=== PATIENT | male | born 1985 | race Caucasian/White ===

== ENCOUNTER 2017-01-17 12:48 | Observation (INO) ==
--- NOTE | 2017-01-17 13:37 | Emergency Department Note ---
Disposition Clinical Impression: Cellulitis Qualifiers: Site of cellulitis: extremity Site of cellulitis of extremity: lower extremity Laterality: left Qualified Code(s): L03.116 - Cellulitis of left lower limb Disposition: Admitted As Inpatient Condition: Fair Referrals: Dimple Loredo [employer] ACQUISITION ANALYST [Primary Care Provider] - Time of Disposition: 14:22 Skin/Abscess/FB HPI Chief complaint: ED Skin/Abscess/Foreign Body Stated complaint: Abcess Left leg Time Seen by Provider: 01/17/17 13:11 Source: patient Limitations: no limitations Nursing Notes Reviewed: Yes Vital Signs Reviewed: Yes HPI Narrative: Nontoxic-appearing 31-year-old male presents for evaluation of a left inner thigh abscess. He states that he noticed this area approximately 5 days ago. It has grown in size and increased in severity/become more painful ever since. He denies any accompanying symptoms such as fever, chills, nausea, vomiting, however admits to several episodes of "getting flushed". He states a history of hydradenitis suppurativa and that he has had abscesses in the past however none in this location and none quite this severe. Eyes any spontaneous discharge or drainage from the abscess itself. Pt Subjective Complaint: abscess/boil Onset (ago): day(s) (5) Location: LLE Severity: moderate Severity scale (1-10): 6 Quality: aching Consistency: Worsening Improves with: none Worsens with: palpation, movement Associated symptoms: Reports: denies other symptoms Treatments prior to arrival: none Previous Rx's Medication Instructions Recorded Loratadine [Claritin] 10 mg PO DAILY #14 tablet 11/15/15 predniSONE [PredniSONE] 20 mg PO BIDWM #40 tablet 11/15/15 Allergies Allergy/AdvReac Type Severity Reaction Status Date / Time No Known Allergies Allergy Verified 01/17/17 13:00 All systems ED: reviewed and negative except as stated. Constitutional: Denies: fever, chills, weakness, weight change Eyes: Denies: eye pain, eye discharge, vision change ENT ED: Denies: ear pain, throat pain, dental pain, hearing loss, epistaxis, congestion, dysphagia Cardiovascular: Denies: chest pain, palpitations, dyspnea on exertion, edema, syncope Respiratory: Denies: cough, dyspnea, wheezes, hemoptysis, stridor Gastrointestinal: Denies: abdominal pain, nausea, vomiting, diarrhea, constipation, hematemesis, melena, hematochezia Genitourinary: Denies: urgency, dysuria, frequency, hematuria Musculoskeletal: Denies: back pain, neck pain, arthralgia, myalgia Integumentary: Reports: as per HPI, other (Abscess). Denies: abrasion, lesions Neurological: Denies: headache, weakness, numbness, paresthesias, confusion, abnormal gait, vertigo Psychiatric: Denies: anxiety, depression, suicidal thoughts, homicidal thoughts , auditory hallucinations, visual hallucinations Endocrine: Denies: fatigue Hematological/Lymphatic: Denies: easy bleeding, easy bruising Allergic/Immunologic: Denies: facial swelling, urticaria Past Medical History - Past Medical History Attestation: Yes The following information was validated with the patient. Source: patient, nursing notes reviewed Medical history: Reports: hypertension Surgical history: Reports: other - Social History Smoking Status: Never smoker Smokeless Tobacco Status: No Alcohol use: Reports: none Drug use: Reports: none Physical Exam - General Limitations: no limitations General appearance: alert, in no apparent distress - Head Head exam: atraumatic, normocephalic, normal inspection - Eye Eye exam: Present: normal appearance, PERRL, EOMI. Absent: nystagmus - ENT ENT exam: mucous membranes moist - Neck Neck exam: Present: normal inspection, full ROM, trachea midline - Chest Chest inspection: Present: normal inspection, symmetric chest wall rise - Respiratory Respiratory exam: Present: normal lung sounds bilaterally. Absent: respiratory distress, wheezes, stridor, accessory muscle use, prolonged expiratory phase - Cardiovascular Cardiovascular exam: Present: regular rate, normal rhythm, normal heart sounds - Abdominal Exam Abdominal exam: Present: soft, Non-Tender, normal bowel sounds - Expanded Lower Extremity Exam 1 - Area of induration that measures approximately 4 cm x 4 cm without palpable fluctuance. This appears to be a deep tissue abscess. Mild overlying/ surrounding cellulitis present. No discharge or drainage is noted. - Neurological Exam Neurological exam: Present: alert, oriented X3 - Psychiatric Psychiatric exam: Present: normal affect, normal mood - Skin Skin exam: Present: warm, dry, intact, normal color Course - Reevaluation(s) Reevaluation #1: 31-year-old with a history of hydra adenitis who comes in with swelling to his proximal leg. The large indurated area of his proximal left inner thigh. CT scan with contrast shows no obvious abscess. We did ultrasound couldn't find anything that was drainable. It is fairly extensive Rohit ahead and give him IV antibiotics. Time: 15:24 - Consultations Consultation #1: Discussed with Dr. Broderick, admit Time: 15:25 Vital Signs Temperature 97.8 F 01/17/17 12:57 Pulse Rate 87 01/17/17 12:57 Respiratory Rate 16 01/17/17 12:57 Blood Pressure 156/84 01/17/17 12:57 O2 Sat by Pulse Oximetry 92 01/17/17 12:57 Temperature 97.8 F 01/17/17 12:57 Pulse Rate 87 01/17/17 12:57 Respiratory Rate 16 01/17/17 12:57 Blood Pressure 156/84 01/17/17 12:57 O2 Sat by Pulse Oximetry 92 01/17/17 12:57 Oxygen Delivery Oxygen Delivery Room Air Skin/Abscess/Foreign Body - Medical Records Medical records reviewed: Yes I reviewed the patient's medical records. - Lab Data Lab results reviewed: Yes I reviewed the patient's lab results. Result diagrams: 01/17/17 13:52 01/17/17 13:52 Lab Results 01/17/17 01/17/17 01/17/17 Range/Units 13:52 13:52 13:52 WBC 8.5 (4.3-11.1) K/mcL RBC 5.89 H (4.19-5.50) M/mcL Hgb 16.0 (12.9-16.9) g/dL Hct 49.8 (37.5-50.1) % MCV 84.6 (83.0-100.0) fL MCH 27.2 L (28.0-33.3) pg MCHC 32.1 (31.6-35.5) g/dL RDW 14.7 H (11.5-14.5) % Plt Count 333 (140-400) K/mcL MPV 9.4 (9.4-12.4) fL Immature Gran % 0.7 (0-4) % Seg Neutrophils % 59.6 % Lymphocytes % 26.1 % Monocytes % 9.5 % Eosinophils % 3.3 % Basophils % 0.8 % Neutrophils # 5.0 (1.6-8.9) K/mcL Lymphocytes # 2.2 (0.6-4.6) K/mcL Monocytes # 0.8 (0.0-1.3) K/mcL Eosinophils # 0.3 (0.0-0.6) K/mcL Basophils # 0.1 (0.0-0.2) K/mcL ESR 71 H (0-10) mm/hr Sodium 141 (136-145) mEq/L Potassium 3.8 (3.5-4.5) mEq/L Chloride 109 (98-109) mEq/L Carbon Dioxide 22 (19-29) mEq/L BUN 16 (8-26) mg/dL Creatinine 0.99 (0.72-1.25) mg/dL Est GFR ( Amer) > 60 (> 60) Est GFR (Non-Af Amer) > 60 (> 60) BUN/Creatinine Ratio 16 (6-26) Glucose 96 (70-99) mg/dL Calculated Osmolality 293 (280-300) Lactic Acid (0.5-2.2) mmol/L Calcium 9.8 (8.6-10.8) mg/dL C-Reactive Protein (Less than 5) mg/L 01/17/17 01/17/17 Range/Units 13:52 13:52 WBC (4.3-11.1) K/mcL RBC (4.19-5.50) M/mcL Hgb (12.9-16.9) g/dL Hct (37.5-50.1) % MCV (83.0-100.0) fL MCH (28.0-33.3) pg MCHC (31.6-35.5) g/dL RDW (11.5-14.5) % Plt Count (140-400) K/mcL MPV (9.4-12.4) fL Immature Gran % (0-4) % Seg Neutrophils % % Lymphocytes % % Monocytes % % Eosinophils % % Basophils % % Neutrophils # (1.6-8.9) K/mcL Lymphocytes # (0.6-4.6) K/mcL Monocytes # (0.0-1.3) K/mcL Eosinophils # (0.0-0.6) K/mcL Basophils # (0.0-0.2) K/mcL ESR (0-10) mm/hr Sodium (136-145) mEq/L Potassium (3.5-4.5) mEq/L Chloride (98-109) mEq/L Carbon Dioxide (19-29) mEq/L BUN (8-26) mg/dL Creatinine (0.72-1.25) mg/dL Est GFR ( Amer) (> 60) Est GFR (Non-Af Amer) (> 60) BUN/Creatinine Ratio (6-26) Glucose (70-99) mg/dL Calculated Osmolality (280-300) Lactic Acid 1.3 (0.5-2.2) mmol/L Calcium (8.6-10.8) mg/dL C-Reactive Protein 9 H (Less than 5) mg/L - Radiology Data Radiology results reviewed: Yes I reviewed the patient's radiology results. Lower Extremity CT 01/17/17 13:29 IMPRESSION: Edema versus cellulitis of the left lower gluteal region and inner thigh. There is a subdermal low density region, as possible phlegmon measuring 3 x 2.5 cm. D/ / Maynor Glez MD / Maynor Glez MD Interpreting Provider: Maynor Glez MD Pelvis CT 01/17/17 13:29 IMPRESSION: Edema versus cellulitis of the left lower gluteal region and inner thigh. There is a subdermal low density region, as possible phlegmon measuring 3 x 2.5 cm. D/ / Maynor Glez MD / Maynor Glez MD Interpreting Provider: Maynor Glez MD S.B.A.R. - S.B.A.R. Situation: Demographics, MOA Background: Presenting Complaint, Relevant PMH, Meds, & Allergies Assessment: Vital Signs, Course and respsone to treatment, Exam Concerns, Patient/Family Expectation, Pertinant Lab Results, Outstanding Labs Recommendation: Barrier(s) to disposition, Recommendation based on pending studies, treatments, or consults Yulia Report Given to: Dr. Lai Bender Repor Time: 14:21
[2017-01-17 14:03] LABS: Basophils # 0.1 K/mcL (0.0-0.2); Basophils % 0.8 %; Eosinophils # 0.3 K/mcL (0.0-0.6); Eosinophils % 3.3 %; Hematocrit 49.8 % (37.5-50.1); Immature Granulocytes % 0.7 % (0-4); Lymphocytes # 2.2 K/mcL (0.6-4.6); Lymphocytes % 26.1 %; Mean Corpuscular HGB Conc 32.1 g/dL (31.6-35.5); Mean Corpuscular Hemoglobin 27.2 pg (28.0-33.3); Mean Corpuscular Volume 84.6 fL (83.0-100.0); Mean Platelet Volume 9.4 fL (9.4-12.4); Monocytes # 0.8 K/mcL (0.0-1.3); Monocytes % 9.5 %; Platelet Count 333 K/mcL (140-400); Red Blood Count 5.89 M/mcL (4.19-5.50); Red Cell Distribution Width 14.7 % (11.5-14.5); Segmented Neutrophils % 59.6 %
[2017-01-17 14:13] LABS: BUN/Creatinine Ratio 16 (6-26); Blood Urea Nitrogen 16 mg/dL (8-26); Calcium 9.8 mg/dL (8.6-10.8); Carbon Dioxide 22 mEq/L (19-29); Chloride 109 mEq/L (98-109); Glucose 96 mg/dL (70-99); Osmolality,Calculated 293 (280-300); Potassium 3.8 mEq/L (3.5-4.5); Sodium 141 mEq/L (136-145); eGFR For African Americans > 60 (> 60); eGFR For Non-African Americans > 60 (> 60)
[2017-01-17] MEDS ORDERED: Piperacillin/Tazobactam 3.375 GM in D5% in Water (Mini-Bag+) 100 ML IVPB ONE (15:23)
[2017-01-17] MEDS ORDERED: Vancomycin 1,000 MG in D5% in Water 250 ML IVPB ONE (15:23)
[2017-01-17] MEDS ORDERED: Naloxone 0.4 MG/ML INJ IVP PRN (17:34)
--- NOTE | 2017-01-17 17:42 | Internal Med History&Physical ---
Date of Encounter: 01/17/17 Time of Encounter: 17:39 Assessment and Plan (1) Cellulitis Current visit: Yes Status: Acute Posterior medial thigh abscess, occurring approximately 5 days ago, continuing to increase in size, now painful. No drainage noted. Likely need incision and drainage at CT reveals 2 x 3 cm phlegmon Consult surgery for incision and drainage-wound cultures with I&D- surgery notified Vancomycin with pharmacy to dose Zosyn 3.375 Q8hrs CBC, BMP in the morning Qualifiers: Site of cellulitis: extremity Site of cellulitis of extremity: lower extremity Laterality: left Qualified Code(s): L03.116 - Cellulitis of left lower limb (2) HTN (hypertension) Current visit: Yes Status: Acute h/o HTN, BP controlled at this time. Continue CCB, BB at home dose. Qualifiers: Hypertension type: essential hypertension Qualified Code(s): I10 - Essential (primary) hypertension (3) Pain Current visit: Yes Status: Acute Pain at abscess site. Ibuprofen and [place]. Pain is tolerable at this time. (4) DVT prophylaxis Current visit: Yes Status: Acute Lovenox 40 mg subcutaneous daily Internal Medicine - H&P: HPI Chief complaint: Left posterior medial thigh abscess Admitted From: Home Plans for Post Hospital Care: Home History of present illness: Mr. Barrientos is a 31 year old male with PMH of hypertension. Presents to the emergency today with a left posterior medial thigh abscess. Reports that he noticed some swelling and tenderness approximately 5 days ago. The abscesses since grown in size and become painful. Has a history of hydradenitis suppurativa and has developed abscesses in the past. Denies any fever, chills, fatigue, nausea, vomiting. No additional new skin eruptions noted. CAT scan of lower extremity revealed cellulitis of left lower gluteal region and inner thigh with a 2 x 3 cm phlegmon Past Med Surg Social Fam HX - Past Medical History Medical history: hypertension - Past Surgical History Surgical History: other - Social History Smoking Status: Never smoker Smokeless Tobacco Status: No Alcohol use: none Drug use: none - Family History Mother Adopted: No Age: 57 Living Status: Still Living Hx Family Cardiac Disorders: Yes (Hypertension) Hx Family Respiratory Disorders: No Hx Family Cancer: No Hx Family GI Disorders: No Hx Family Genitourinary Disorders: No Hx Family Endocrine Disorder: No Hx Family Neuromuscular Disorders: No Hx Family Neurologic Disorders: No Hx Family HEENT Disorders: No Hx Family Autoimmune Disorders: No Hx Family Reproductive Disorders: No Hx Family Psychosocial Disorders: No Hx Family Medical Disorders: No Father Age: 58 Family Member Ethnicity: Non- Living Status: Still Living Hx Family Cardiac Disorders: Yes (hypertension) Hx Family Respiratory Disorders: No Hx Family Cancer: No Hx Family GI Disorders: No Hx Family Genitourinary Disorders: No Hx Family Endocrine Disorder: Yes (Diabetic) Hx Family Musculoskeletal Disorders: No Hx Family Neuromuscular Disorders: No Hx Family Neurologic Disorders: No Hx Family HEENT Disorders: No Hx Family Autoimmune Disorders: No Hx Family Reproductive Disorders: No Hx Family Psychosocial Disorders: No Hx Family Medical Disorders: No - Additional Family History Additional family history: Noncontributory Internal Medicine - H&P: Meds Amlodipine Besylate [Amlodipine Besylate] 10 mg PO DAILY 01/17/17 [History] Doxycycline Hyclate [Doxycycline Hyclate] 100 mg PO BID 01/17/17 [History] Ergocalciferol (VITAMIN D2) [Vitamin D] 400 unit PO DAILY 01/17/17 [History] Gabapentin [Neurontin] 100 mg PO TID 01/17/17 [History] InFLIXimab [Remicade] 100 mg IV QMONTH 01/17/17 [History] Metoprolol Succinate 100 mg PO DAILY 01/17/17 [History] Ranitidine HCl [Zantac 75] 75 mg PO BID 01/17/17 [History] Testosterone Cypionate [Depo-Testosterone] 200 mg IM Q2W 01/17/17 [History] Tizanidine HCl [Tizanidine HCl] 2 - 4 mg PO HS 01/17/17 [History] Topiramate [Topamax] 100 mg PO HS 01/17/17 [History] Venlafaxine XR (24 HR) [Effexor Xr] 37.5 mg PO DAILY 01/17/17 [History] 3 Allergy/AdvReac Type Severity Reaction Status Date / Time No Known Allergies Allergy Verified 01/17/17 13:00 All Systems PM: A 10-system review of systems was performed and is negative for pertinent findings except as documented above in the HPI. - Constitutional Constitutional: no chills, no fever(s), no night sweats - EENT Eyes: no change in vision, no discharge, no pain, no photophobia Ears: no ear discharge, no ear pain, no tinnitus Nose, mouth and throat: no dysphagia, no nasal discharge, no neck pain, no sore throat - Cardiovascular Cardiovascular ROS IM: no chest pain, no diaphoresis, no dyspnea, no lightheadedness, no palpitations, no syncope - Respiratory Respiratory: no cough, no dyspnea, no wheezing, no excessive phlegm production - Gastrointestinal Gastrointestinal: no abdominal pain, no diarrhea, no hematemesis, no hematochezia, no melena, no nausea, no vomiting - Musculoskeletal Musculoskeletal ROS IM: no numbness, no tingling - Integumentary Integumentary IM: as per HPI, erythema, new lesions, skin ulcer, no pruritus, no rash, no unusual bruising - Neurological Neurological ROS: no confusion, no convulsions, no focal weakness, no numbness, no tingling, no tremor(s) - Hematologic/Lymphatic Hematologic/Lymphatic: no easy bruising - Constitutional Vitals: Temp Pulse Resp BP Pulse Ox 98.5 F 71 20 126/76 96 01/17/17 16:12 01/17/17 16:12 01/17/17 16:12 01/17/17 16:12 01/17/17 17:36 General appearance: Present: cooperative, A&O X 3, no acute distress, answers questions appropriately - Head Head exam: Present: atraumatic, normocephalic - Eye Eye exam: Present: PERRL, conjuntiva pink, sclera anicteric Pupils: Present: PERRL - Neck Neck exam general surgery: Present: supple, trachea midline. Absent: lymphadenopathy - Respiratory Respiratory exam: Present: CTAB. Absent: accessory muscle use, rales, rhonchi, wheezes - Cardiovascular Cardiovascular exam: Present: RRR, +S1, +S2. Absent: diastolic murmur, gallop, rubs, systolic murmur - GI/Abdominal GI/Abdominal exam: Present: normal bowel sounds, soft, no peritoneal signs. Absent: distended, tenderness - Extremities Exam Extremities exam: Present: warm, radial pulses palpable and symmetrical. Absent : calf tenderness, cyanotic, pedal edema - Neurological Exam Neurological exam: Present: CN II-XII intact, oriented X3, no focal deficits. Absent: pronater drift, facial droop, speech deficit - Skin Skin exam: Present: dry. Absent: intact, normal color - Expanded Skin Exam Type of lesion: Present: abscess Description of rash: Present: fluctuant, swelling. Absent: indurated Full body front and back image: 1 - Approximately 2 x 3 cm fluctuant abscess Internal Med - H&P Results - Labs CBC & Chem 7: 01/17/17 13:52 01/17/17 13:52 - Diagnostic Studies CT scan - pelvis Status: image reviewed by me Additional comments: CT of lower extremity and pelvis reveals cellulitis of left lower gluteal region inner thigh. Approximately 2 x 3 cm phlegmon noted - VTE Reasons for not Prescribing Prophylaxis: Treatment not Indicated - Low risk for VTE
--- NOTE | 2017-01-17 17:45 | Event Note ---
Date of Encounter: 01/17/17 Time of Encounter: 17:44 Patient seen and examined with nurse practitioner. Agree with assessment and plan
[2017-01-17] MEDS ORDERED: *HR* HYDROcodone/Acet 5/325 mg TABLET PO PRN (17:58)
[2017-01-17] MEDS: Gabapentin 100 MG CAPSULE PO SCH (19:57)
[2017-01-17] MEDS: tiZANidine 4 MG TABLET PO SCH (19:58)
[2017-01-17] MEDS: Famotidine 20 MG TABLET PO SCH (19:58)
[2017-01-17] MEDS: Ibuprofen 800 MG TABLET PO PRN (19:58)
[2017-01-17] MEDS: Topiramate 100 MG TABLET PO SCH (19:58)
--- NOTE | 2017-01-17 20:46 | General Surgery Consult Note ---
Date of Encounter: 01/17/17 Time of Encounter: 07:40 Assessment and Plan (1) Hidradenitis suppurativa Current Visit: Yes Status: Acute Involving the left upper medial thigh. At this point the tissues appear more fibrotic with surrounding cellulitis than fluctuant. At this point incision and drainage is not indicated. I agree with IV antibiotic therapy we will be glad to follow along with you and provide incision and drainages this becomes necessary. History of Present Illness Consult date: 01/17/17 Reason for consult: other (Abscess left medial thigh) History of present illness: The patient has a personal history of hidradenitis upper cava of the axilla. He states that he has started to have difficulty with hidradenitis findings in the perianal and medial thigh area. This has not been active for some time. He has developed a 5 cm x 3 cm painful nodular area on the upper medial aspect left thigh. There is some surrounding cellulitis. The patient denies shakes chills or fever he is concern that the areas enlarging and painful he sought evaluation emergency room and CAT scan was obtained. I personally reviewed the CAT scan images. There is a 3 cm x 2.5 cm nodule in the medial left thigh. This is surrounded by cellulitis. It is unclear whether this represents chronic fibrosis or abscess cavity. There is no clear abscess cavity. On physical examination I cannot feel any fluctuance in the area. This time follow along with you clinically during antibiotic therapy. We will provide incision and drainage if this becomes necessary. Past Med Surg Social Fam HX - Past Medical History Medical history: hypertension - Past Surgical History Surgical History: other - Social History Smoking Status: Never smoker Smokeless Tobacco Status: No Alcohol use: none Drug use: none - Family History Mother Adopted: No Age: 57 Living Status: Still Living Hx Family Cardiac Disorders: Yes (Hypertension) Hx Family Respiratory Disorders: No Hx Family Cancer: No Hx Family GI Disorders: No Hx Family Genitourinary Disorders: No Hx Family Endocrine Disorder: No Hx Family Neuromuscular Disorders: No Hx Family Neurologic Disorders: No Hx Family HEENT Disorders: No Hx Family Autoimmune Disorders: No Hx Family Reproductive Disorders: No Hx Family Psychosocial Disorders: No Hx Family Medical Disorders: No Father Age: 58 Family Member Ethnicity: Non- Living Status: Still Living Hx Family Cardiac Disorders: Yes (hypertension) Hx Family Respiratory Disorders: No Hx Family Cancer: No Hx Family GI Disorders: No Hx Family Genitourinary Disorders: No Hx Family Endocrine Disorder: Yes (Diabetic) Hx Family Musculoskeletal Disorders: No Hx Family Neuromuscular Disorders: No Hx Family Neurologic Disorders: No Hx Family HEENT Disorders: No Hx Family Autoimmune Disorders: No Hx Family Reproductive Disorders: No Hx Family Psychosocial Disorders: No Hx Family Medical Disorders: No Medications and Allergies Amlodipine Besylate [Amlodipine Besylate] 10 mg PO DAILY 01/17/17 [History] Doxycycline Hyclate [Doxycycline Hyclate] 100 mg PO BID 01/17/17 [History] Ergocalciferol (VITAMIN D2) [Vitamin D] 400 unit PO DAILY 01/17/17 [History] Gabapentin [Neurontin] 100 mg PO TID 01/17/17 [History] InFLIXimab [Remicade] 100 mg IV QMONTH 01/17/17 [History] Metoprolol Succinate 100 mg PO DAILY 01/17/17 [History] Ranitidine HCl [Zantac 75] 75 mg PO BID 01/17/17 [History] Testosterone Cypionate [Depo-Testosterone] 200 mg IM Q2W 01/17/17 [History] Tizanidine HCl [Tizanidine HCl] 2 - 4 mg PO HS 01/17/17 [History] Topiramate [Topamax] 100 mg PO HS 01/17/17 [History] Venlafaxine XR (24 HR) [Effexor Xr] 37.5 mg PO DAILY 01/17/17 [History] 3 Allergy/AdvReac Type Severity Reaction Status Date / Time No Known Allergies Allergy Verified 01/17/17 13:00 Review of Systems All systems PM: A 10-system review of systems was performed and is negative for pertinent findings except as documented above in the HPI. General Surgery Exam Initial Vital Signs Temp Pulse Resp BP Pulse Ox 97.8 F 87 16 156/84 92 01/17/17 12:57 01/17/17 12:57 01/17/17 12:57 01/17/17 12:57 01/17/17 12:57 - General physical appearance well developed, well nourished, no distress - ENT normal pinna, normal nares, normal mucosa, no hearing loss, no congestion - Respiratory normal expansion, normal respiratory effort, clear to percussion, clear to auscultation - Cardiovascular Cardiovascular exam: Present: RRR, no murmurs/rubs/gallops - Abdomen Abdomen general surgery: Present: bowel sounds present, soft, non tender - Integumentary Integumentary general surgery: Present: other (5 cm x 3 cm fibrous nodule on the medial aspect of the left thigh. I cannot feel any fluctuance in this area. There is some surrounding induration.) - Neurologic Present: CN 2-12 grossly intact, normal coordination, normal sensation - Psychiatric Psychiatric general surgery: Present: appropriate, oriented to person, oriented to place, oriented to time, speech is normal, memory intact Exam Initial Vital Signs Temp Pulse Resp BP Pulse Ox 97.8 F 87 16 156/84 92 01/17/17 12:57 01/17/17 12:57 01/17/17 12:57 01/17/17 12:57 01/17/17 12:57 Results - Labs 01/17/17 13:52 01/17/17 13:52 Abnormal lab results RBC 5.89 M/mcL (4.19-5.50) H 01/17/17 13:52 MCH 27.2 pg (28.0-33.3) L 01/17/17 13:52 RDW 14.7 % (11.5-14.5) H 01/17/17 13:52 ESR 71 mm/hr (0-10) H 01/17/17 13:52 C-Reactive Protein 9 mg/L (Less than 5) H 01/17/17 13:52 All other labs normal. - Imaging CT scan - pelvis: image reviewed (I personally reviewed the CAT scan of the pelvis. There is no evidence of adenopathy. There is no free fluid or free air. The deep muscular compartments are not involved. The nodule appears fibrous to my interpretation was surrounding cellulitis. I cannot detect a discrete abscess.) Consult Discharge Plan - Plan
[2017-01-17] MEDS: Vancomycin 2,000 MG in D5% in Water 500 ML IVPB SCH (22:04)
[2017-01-18] MEDS: Piperacillin/Tazobactam 3.375 GM in D5% in Water (Mini-Bag+) 100 ML IVPB SCH ×3 (00:38→17:56)
[2017-01-18] MEDS: *HR* Enoxaparin 40 MG/0.4 ML SYRINGE SQ SCH (05:41)
[2017-01-18 06:01] LABS: Alanine Aminotransferase 14 Units/L (0-55); Albumin 3.3 g/dL (3.5-5.0); Alkaline Phosphatase 70 Units/L (38-126); Aspartate Amino Transferase 11 Units/L (5-34); BUN/Creatinine Ratio 11 (6-26); Bilirubin,Total 0.4 mg/dL (0.2-1.2); Blood Urea Nitrogen 12 mg/dL (8-26); Calcium 9.1 mg/dL (8.6-10.8); Carbon Dioxide 23 mEq/L (19-29); Chloride 112 mEq/L (98-109); Glucose 104 mg/dL (70-99); Osmolality,Calculated 294 (280-300); Sodium 142 mEq/L (136-145); eGFR For African Americans > 60 (> 60); eGFR For Non-African Americans > 60 (> 60)
[2017-01-18 06:02] LABS: Albumin/Globulin Ratio 0.9 (1.1-2.2); Globulin 3.7 g/dL (2.4-3.5)
[2017-01-18] MEDS: Famotidine 20 MG TABLET PO SCH ×2 (09:24→20:17)
[2017-01-18] MEDS: Venlafaxine XR (24 HR) 37.5 MG CAP.ER.24H PO SCH (09:25)
[2017-01-18] MEDS: Gabapentin 100 MG CAPSULE PO SCH ×3 (09:25→20:17)
[2017-01-18] MEDS: Metoprolol XL (24 HR) Succ 50 MG TAB.ER.24H PO SCH (09:25)
[2017-01-18] MEDS: amLODIPine 5 MG TABLET PO SCH (09:26)
[2017-01-18] MEDS: Vancomycin 2,000 MG in D5% in Water 500 ML IVPB SCH ×2 (09:42→22:24)
[2017-01-18] MEDS ORDERED: Ondansetron 4 MG/2 ML VIAL IVP ONE (14:50)
[2017-01-18] MEDS ORDERED: *HR* Morphine 2 MG/ML SYRINGE IVP ONE (14:50)
--- NOTE | 2017-01-18 15:21 | General Surgery Progress Note ---
<Tanvi Carbone Mary - Last Filed: 01/18/17 15:59> Date of Encounter: 01/18/17 Time of Encounter: 14:45 - Assessment and Plan (1) Abscess, gluteal, left Current Visit: Yes Status: Acute Left gluteal fold abscess with large area of fluctuance noted in the center. Bedside incision and drainage completed. May change outer dressing PRN. Do not remove packing. Cultures obtained and pending continue IV antibiotics per primary medicine at this time. At NC, patient's states she will be able to complete his packing. We will reevaluate in the a.m. Subjective Patient reports: no new complaints, still having pain, voiding w/o difficulty, flatus, bowel movement, afebrile Objective Vital Signs - Last 8 Hours Temp Pulse Resp BP Pulse Ox 01/18/17 10:35 98.2 F 63 18 127/76 95 01/18/17 09:06 99 Intake and Output 01/17/17 01/18/17 01/18/17 23:59 07:59 15:59 Intake Total 700 / 700 700 / 700 1200 / 1200 Output Total 800 / 800 1300 / 1300 900 / 900 Balance -100 / -100 -600 / -600 300 / 300 Intake: IV Fluids 600 / 600 600 / 600 Zosyn 3.375 GM In Dextrose 5% ( 100 / 100 100 / 100 Minibag+) 100 ML 100 ML @ 25 mls/hr IVPB Q8H [facility] Rx#: [id number] Vancocin 2,000 MG In Dextrose 5 500 / 500 500 / 500 % 500 ML @ 250 mls/hr IVPB Q12H [facility] Rx#:[id number] Oral 700 / 700 100 / 100 600 / 600 Output: Urine 800 / 800 1300 / 1300 900 / 900 Other: Meal Lunch Percent of Meal Consumed 100% Weight 135.4 kg 135.171 kg Patient Weight 01/18/17 23:59 Weight 135.171 kg - General physical appearance well nourished, no distress - Eyes normal ocular movement - ENT atraumatic, normocephalic - Neck Neck exam: trachea midline - Respiratory normal expansion, normal respiratory effort, clear to auscultation - Abdomen Abdomen: Present: bowel sounds present, soft, non tender Hernia: none - Integumentary other (Left gluteal fold abscess) - Neurologic normal coordination, normal sensation - Musculoskeletal normal gait, normal posture - Psychiatric oriented to time, oriented to person, oriented to place, speech is normal, memory intact - Labs 01/17/17 13:52 01/18/17 05:31 Diabetes panel 01/18/17 Range/Units 05:31 Sodium 142 (136-145) mEq/L Potassium 4.0 (3.5-4.5) mEq/L Chloride 112 H (98-109) mEq/L Carbon Dioxide 23 (19-29) mEq/L BUN 12 (8-26) mg/dL Creatinine 1.10 (0.72-1.25) mg/dL Glucose 104 H (70-99) mg/dL Calcium 9.1 (8.6-10.8) mg/dL AST 11 (5-34) Units/L ALT 14 (0-55) Units/L Alkaline Phosphatase 70 (38-126) Units/L Albumin 3.3 L (3.5-5.0) g/dL Calcium panel 01/18/17 Range/Units 05:31 Calcium 9.1 (8.6-10.8) mg/dL Albumin 3.3 L (3.5-5.0) g/dL Pituitary panel 01/18/17 Range/Units 05:31 Sodium 142 (136-145) mEq/L Potassium 4.0 (3.5-4.5) mEq/L Chloride 112 H (98-109) mEq/L Carbon Dioxide 23 (19-29) mEq/L BUN 12 (8-26) mg/dL Creatinine 1.10 (0.72-1.25) mg/dL Glucose 104 H (70-99) mg/dL Calcium 9.1 (8.6-10.8) mg/dL Adrenal panel 01/18/17 Range/Units 05:31 Sodium 142 (136-145) mEq/L Potassium 4.0 (3.5-4.5) mEq/L Chloride 112 H (98-109) mEq/L Carbon Dioxide 23 (19-29) mEq/L BUN 12 (8-26) mg/dL Creatinine 1.10 (0.72-1.25) mg/dL Glucose 104 H (70-99) mg/dL Calcium 9.1 (8.6-10.8) mg/dL Total Bilirubin 0.4 (0.2-1.2) mg/dL AST 11 (5-34) Units/L ALT 14 (0-55) Units/L Alkaline Phosphatase 70 (38-126) Units/L Albumin 3.3 L (3.5-5.0) g/dL - VTE Reasons for not Prescribing Prophylaxis: Treatment not Indicated - Low risk for VTE Consult Discharge Plan - Plan Instructions: Cellulitis (DC) Additional Instructions: Wound care daily: remove packing. Shower using antibacterial soap. Repack with 1/4 inch plane because cover with a dry dressing and tape to secure. Follow-up in the office on 12/26/16 at 9:40 AM. Take antibiotics as directed. Referrals: Dimple Loredo CNP [Primary Care Provider] - Tanvi Carbone CNP [Advanced Practice Nurse] - 01/26/17 9:40 am Prescriptions: HYDROcodone/Acet 5/325 mg [[place] 5-325 mg] 1 tab PO Q6HR PRN #14 tablet PRN Reason: Moderate Pain Ibuprofen [Motrin] 800 mg PO Q8HR PRN #20 tablet PRN Reason: Mild Pain Sulfamethoxazole/Trimeth DS [Bactrim DS] 1 each PO BID #20 tablet Date of procedure: 01/18/17 Procedure: ABSCESS INCISION AND DRAINAGE PROCEDURE NOTE INDICATION: Abscess manifested as a tender, swollen fluctuant mass in the superficial subcutaneous tissue. INFORMED CONSENT: The risks and benefits of the procedure including incomplete drainage, scarring, infection and bleeding was explained and the patient verbalized their understanding and wished to proceed with the procedure. PROCEDURE: The area of greatest fluctuance was identified, prepped, and draped in a sterile fashion. Local anesthetic (10 MLs of 2% lidocaine) was introduced subcutaneously over the area of greatest fluctuance. A linear incision was then made over the area of greatest fluctuance, with immediate return of a large amount of purulent material. Gram stain, aerobic, and anaerobic cultures were obtained. The wound was explored with a hemostat to break up loculations and irrigated with 40MLs saline solution. Once the wound was explored, cleaned , and irrigated, 1/4 inch iodoform gauze packing was placed loosely in the wound. A dressing was then applied. FINDINGS: Purulent drainage. EBL: <5 mL COMPLICATIONS: None. Signature: CHELITA Plascecnia <Tor Ballesteros - Last Filed: 01/19/17 13:51> Date of Encounter: 01/18/17 - Assessment and Plan (1) Hidradenitis suppurativa Current Visit: Yes Status: Acute Objective Vital Signs - Last 8 Hours Temp Pulse Resp BP Pulse Ox 01/19/17 10:18 97.6 F 66 18 124/76 93 01/19/17 06:53 97.9 F 61 18 134/81 98 Intake and Output 01/18/17 01/19/17 01/19/17 23:59 07:59 15:59 Intake Total 220 / 220 2100 / 2100 50 / 50 Output Total 650 / 650 1700 / 1700 700 / 700 Balance -430 / -430 400 / 400 -650 / -650 Intake: IV Fluids 100 / 100 500 / 500 50 / 50 Zosyn 3.375 GM In Dextrose 5% ( 100 / 100 Minibag+) 100 ML 100 ML @ 25 mls/hr IVPB Q8H [facility] Rx#: [id number] Zosyn 3.375 GM In Dextrose 5% ( 50 / 50 ADD-[place]) 50 ML @ 12.5 mls/ hr IVPB Q8H [facility] Rx#:[id number] Vancocin 2,000 MG In Dextrose 5 500 / 500 % 500 ML @ 250 mls/hr IVPB Q12H [facility] Rx#:[id number] Oral 120 / 120 1600 / 1600 0 / 0 Output: Urine 650 / 650 1700 / 1700 700 / 700 Other: Meal Dinner Percent of Meal Consumed 100% Weight 128.866 kg Patient Weight 01/19/17 23:59 Weight 128.866 kg - Labs 01/19/17 05:48 01/18/17 05:31 - Attending Attestation I have personally performed a face to face evaluation on this patient. I have reviewed and agree with the care plan. History and Exam by me shows: The patient was seen and evaluated morning rounds. The area left thigh appears fluctuant. This will require incision and drainage. The clinical nurse practitioner will proceed with uncomplicated incision and drainage of abscess. Tor Ballesteros MD FACS
--- NOTE | 2017-01-18 16:34 | Internal Med Progress Note ---
Date of Encounter: 01/18/17 Time of Encounter: 10:25 - Assessment and plan (1) Abscess, gluteal, left Current Visit: Yes Status: Acute Assessment and plan: Continue IV antibiotics. Incision and drainage to be done with surgery. Will follow culture results from the wound. (2) Cellulitis Current Visit: Yes Status: Acute Assessment and plan: Management as above with intravenous antibiotics. And pain control. Moderate risk for complications. Qualifiers: Site of cellulitis: extremity Site of cellulitis of extremity: lower extremity Laterality: left Qualified Code(s): L03.116 - Cellulitis of left lower limb (3) HTN (hypertension) Current Visit: Yes Status: Chronic Assessment and plan: Blood pressure is well controlled. Qualifiers: Hypertension type: essential hypertension Qualified Code(s): I10 - Essential (primary) hypertension - Subjective Interval history: Patient is awake and alert. Sitting up in bed. Pain is well controlled in his gluteal region. Denies any fever or chills. Has not noticed much improvement in his swelling or redness - Constitutional Vitals: Temp Pulse Resp BP Pulse Ox 98.2 F 63 18 127/76 95 01/18/17 10:35 01/18/17 10:35 01/18/17 10:35 01/18/17 10:35 01/18/17 10:35 General appearance: Present: cooperative, A&O X 3, no acute distress, answers questions appropriately - Neck Neck exam general surgery: Present: supple, trachea midline. Absent: lymphadenopathy - Respiratory Respiratory exam: Present: CTAB. Absent: accessory muscle use, rales, rhonchi, wheezes - Cardiovascular Cardiovascular exam: Present: RRR, +S1, +S2. Absent: diastolic murmur, gallop, rubs, systolic murmur - GI/Abdominal GI/Abdominal exam: Present: normal bowel sounds, soft, no peritoneal signs. Absent: distended, tenderness - Extremities Exam Extremities exam: Present: tenderness (Erythema and swelling involving the left gluteal fold with induration), warm, radial pulses palpable and symmetrical. Absent: calf tenderness, cyanotic, pedal edema - Neurological Exam Neurological exam: Present: alert, oriented X3, no focal deficits. Absent: facial droop, speech deficit - Skin Skin exam: Present: dry, erythema (As above), intact Internal Medicine: Result - Labs CBC & Chem 7: 01/17/17 13:52 01/18/17 05:31 Labs: BMP 01/18/17 05:31 Sodium 142 Potassium 4.0 Chloride 112 H Carbon Dioxide 23 BUN 12 Creatinine 1.10 Glucose 104 H Calcium 9.1 Liver Function 01/18/17 Range/Units 05:31 Total Bilirubin 0.4 (0.2-1.2) mg/dL AST 11 (5-34) Units/L ALT 14 (0-55) Units/L Alkaline Phosphatase 70 (38-126) Units/L Albumin 3.3 L (3.5-5.0) g/dL - VTE Reasons for not Prescribing Prophylaxis: Treatment not Indicated - Low risk for VTE Consult Discharge Plan - Plan Referrals: Dimple Loredo, GABINO [Primary Care Provider] -
[2017-01-18] MEDS: tiZANidine 4 MG TABLET PO SCH (20:16)
[2017-01-18] MEDS: Topiramate 100 MG TABLET PO SCH (20:17)
[2017-01-19] MEDS: Piperacillin/Tazobactam 3.375 GM in D5% in Water (Mini-Bag+) 100 ML IVPB SCH (01:40)
[2017-01-19] MEDS: *HR* Enoxaparin 40 MG/0.4 ML SYRINGE SQ SCH (05:32)
[2017-01-19 05:56] LABS: Basophils # 0.1 K/mcL (0.0-0.2); Basophils % 0.6 %; Eosinophils # 0.5 K/mcL (0.0-0.6); Eosinophils % 4.9 %; Hematocrit 50.5 % (37.5-50.1); Hemoglobin 16.2 g/dL (12.9-16.9); Immature Granulocytes % 0.7 % (0-4); Lymphocytes # 2.9 K/mcL (0.6-4.6); Lymphocytes % 27.8 %; Mean Corpuscular HGB Conc 32.1 g/dL (31.6-35.5); Mean Corpuscular Hemoglobin 27.4 pg (28.0-33.3); Mean Corpuscular Volume 85.3 fL (83.0-100.0); Mean Platelet Volume 9.3 fL (9.4-12.4); Monocytes # 0.8 K/mcL (0.0-1.3); Platelet Count 305 K/mcL (140-400); Red Blood Count 5.92 M/mcL (4.19-5.50)
[2017-01-19] MEDS: Ibuprofen 800 MG TABLET PO PRN (07:56)
[2017-01-19] MEDS: Metoprolol XL (24 HR) Succ 50 MG TAB.ER.24H PO SCH (07:56)
[2017-01-19] MEDS: Famotidine 20 MG TABLET PO SCH (08:06)
[2017-01-19] MEDS: amLODIPine 5 MG TABLET PO SCH (08:07)
[2017-01-19] MEDS: Gabapentin 100 MG CAPSULE PO SCH ×2 (08:07→13:05)
[2017-01-19] MEDS: Venlafaxine XR (24 HR) 37.5 MG CAP.ER.24H PO SCH (08:07)
[2017-01-19] MEDS ORDERED: Piperacillin/Tazobactam 3.375 GM in D5% in Water 50 ML IVPB SCH (09:00)
[2017-01-19 10:21] VITALS: BP 124/76
--- NOTE | 2017-01-19 11:45 | General Surgery Progress Note ---
<Tanvi Carbone - Last Filed: 01/19/17 12:47> Date of Encounter: 01/19/17 Time of Encounter: 11:38 - Assessment and Plan (1) Abscess, gluteal, left Current Visit: Yes Status: Acute Left gluteal fold area improved. Repacked with 1/4 inch iodoform gauze. OK to d/ from a surgical perspective with PO Bactrim. Subjective Patient reports: no new complaints, feels better, pain is less, tolerating a regular diet, voiding w/o difficulty, flatus, no bowel movement, afebrile Objective Vital Signs - Last 8 Hours Temp Pulse Resp BP Pulse Ox 01/19/17 10:18 97.6 F 66 18 124/76 93 01/19/17 06:53 97.9 F 61 18 134/81 98 01/19/17 04:04 97.8 F 63 13 131/82 96 Intake and Output 01/18/17 01/19/17 01/19/17 23:59 07:59 15:59 Intake Total 220 / 220 1600 / 1600 0 / 0 Output Total 650 / 650 1700 / 1700 700 / 700 Balance -430 / -430 -100 / -100 -700 / -700 Intake: IV Fluids 100 / 100 Zosyn 3.375 GM In Dextrose 5% ( 100 / 100 Minibag+) 100 ML 100 ML @ 25 mls/hr IVPB Q8H [facility] Rx#: [id number] Oral 120 / 120 1600 / 1600 0 / 0 Output: Urine 650 / 650 1700 / 1700 700 / 700 Other: Meal Dinner Percent of Meal Consumed 100% Weight 128.866 kg Patient Weight 01/19/17 23:59 Weight 128.866 kg - General physical appearance well nourished, no distress - Eyes normal ocular movement - ENT atraumatic, normocephalic - Neck Neck exam: trachea midline, no venous distension - Respiratory normal expansion, normal respiratory effort, clear to auscultation - Cardiovascular Cardiovascular exam: Present: RRR - Abdomen Abdomen: Present: bowel sounds present, soft, non tender, wound (Left gluteal site improved) Hernia: none - Integumentary no rash, no growths - Neurologic CN 2-12 grossly intact, normal coordination - Musculoskeletal normal gait, normal posture - Psychiatric oriented to time, oriented to person, oriented to place, speech is normal, memory intact - Labs 01/19/17 05:48 01/18/17 05:31 - VTE Reasons for not Prescribing Prophylaxis: Treatment not Indicated - Low risk for VTE Consult Discharge Plan - Plan Instructions: Cellulitis (DC) Additional Instructions: Wound care daily: remove packing. Shower using antibacterial soap. Repack with 1/4 inch plane because cover with a dry dressing and tape to secure. Follow-up in the office on 12/26/16 at 9:40 AM. Take antibiotics as directed. Referrals: Dimple Loredo CNP [Primary Care Provider] - Tanvi Carbone CNP [Advanced Practice Nurse] - 01/26/17 9:40 am Prescriptions: HYDROcodone/Acet 5/325 mg [[place] 5-325 mg] 1 tab PO Q6HR PRN #14 tablet PRN Reason: Moderate Pain Ibuprofen [Motrin] 800 mg PO Q8HR PRN #20 tablet PRN Reason: Mild Pain Sulfamethoxazole/Trimeth DS [Bactrim DS] 1 each PO BID #20 tablet - Patient Status Disposition: Home, Self-Care Condition: Good Functional capacity at discharge: independent ambulation Overall status at discharge: patient is progressing back to baseline - Discharge Instructions Instructions: Cellulitis (DC) Follow Up With: Dimple Loredo CNP [Primary Care Provider] - Tanvi Carbone CNP [Advanced Practice Nurse] - 01/26/17 9:40 am Forms: ED Satisfaction Letter Additional Instructions: Wound care daily: remove packing. Shower using antibacterial soap. Repack with 1/4 inch plane because cover with a dry dressing and tape to secure. Follow-up in the office on 12/26/16 at 9:40 AM. Take antibiotics as directed. - Diet and Activity Activity: increase activity as tolerated Diet: advance to your usual diet <Tor Ballesteros - Last Filed: 01/19/17 13:58> Date of Encounter: 01/19/17 - Assessment and Plan (1) Hidradenitis suppurativa Current Visit: Yes Status: Acute Objective Vital Signs - Last 8 Hours Temp Pulse Resp BP Pulse Ox 01/19/17 10:18 97.6 F 66 18 124/76 93 01/19/17 06:53 97.9 F 61 18 134/81 98 Intake and Output 01/18/17 01/19/1701/19/17 23:59 07:59 15:59 Intake Total 220 / 220 2100 / 2100 50 / 50 Output Total 650 / 650 1700 / 1700 700 / 700 Balance -430 / -430 400 / 400 -650 / -650 Intake: IV Fluids 100 / 100 500 / 500 50 / 50 Zosyn 3.375 GM In Dextrose 5% ( 100 / 100 Minibag+) 100 ML 100 ML @ 25 mls/hr IVPB Q8H [facility] Rx#: [id number] Zosyn 3.375 GM In Dextrose 5% ( 50 / 50 ADD-[place]) 50 ML @ 12.5 mls/ hr IVPB Q8H [facility] Rx#:[id number] Vancocin 2,000 MG In Dextrose 5 500 / 500 % 500 ML @ 250 mls/hr IVPB Q12H [facility] Rx#:[id number] Oral 120 / 120 1600 / 1600 0 / 0 Output: Urine 650 / 650 1700 / 1700 700 / 700 Other: Meal Dinner Percent of Meal Consumed 100% Weight 128.866 kg Patient Weight 01/19/17 23:59 Weight 128.866 kg - Labs 01/19/17 05:48 01/18/17 05:31 - Attending Attestation I have personally performed a face to face evaluation on this patient. I have reviewed and agree with the care plan. History and Exam by me shows: The patient was seen and evaluated. Pain is improved after incision and drainage. The incision and drainage site is Healing. I will be glad to see Follow-up as an outpatient in wound clinic
--- NOTE | 2017-01-19 11:54 | Discharge Summary ---
Date of Encounter: 01/19/17 Time of Encounter: 11:48 - Discharge Diagnosis (1) Abscess, gluteal, left Priority: Primary Status: Acute (2) Cellulitis Priority: Secondary Status: Acute Qualifiers: Site of cellulitis: extremity Site of cellulitis of extremity: lower extremity Laterality: left Qualified Code(s): L03.116 - Cellulitis of left lower limb (3) HTN (hypertension) Priority: Secondary Status: Chronic Qualifiers: Hypertension type: essential hypertension Qualified Code(s): I10 - Essential (primary) hypertension - Discharge Medications Prescriptions: HYDROcodone/Acet 5/325 mg [[place] 5-325 mg] 1 tab PO Q6HR PRN #14 tablet PRN Reason: Moderate Pain Ibuprofen [Motrin] 800 mg PO Q8HR PRN #20 tablet PRN Reason: Mild Pain Sulfamethoxazole/Trimeth DS [Bactrim DS] 1 each PO BID #20 tablet Home Medications: Amlodipine Besylate 10 mg PO DAILY 01/17/17 [History] Ergocalciferol (VITAMIN D2) [Vitamin D] 400 unit PO DAILY 01/17/17 [History] Gabapentin [Neurontin] 100 mg PO TID 01/17/17 [History] InFLIXimab [Remicade] 100 mg IV QMONTH 01/17/17 [History] Metoprolol Succinate 100 mg PO DAILY 01/17/17 [History] Ranitidine HCl [Zantac 75] 75 mg PO BID 01/17/17 [History] Testosterone Cypionate [Depo-Testosterone] 200 mg IM Q2W 01/17/17 [History] Tizanidine HCl 2 - 4 mg PO HS 01/17/17 [History] Topiramate [Topamax] 100 mg PO HS 01/17/17 [History] Venlafaxine XR (24 HR) [Effexor Xr] 37.5 mg PO DAILY 01/17/17 [History] HYDROcodone/Acet 5/325 mg [[place] 5-325 mg] 1 tab PO Q6HR PRN #14 tablet [Rx] Ibuprofen [Motrin] 800 mg PO Q8HR PRN #20 tablet 01/19/17 [Rx] Sulfamethoxazole/Trimeth DS [Bactrim DS] 1 each PO BID #20 tablet 01/19/17 [Rx] Allergies/Adverse Reactions: 3 Allergy/AdvReac Type Severity Reaction Status Date / Time No Known Allergies Allergy Verified 01/17/17 13:00 Date of admission: 01/17/17 15:35 Primary care physician: Dimple Loredo Consults: 01/17/17 17:50 Consult to Surgery [CONS] Routine Consulting Provider: Armando Valdivia Surgical Reason for Consult: I&D Time Notified: 17:50 Call Completed: Yes Discharging clinician: Karmen Nicole Anticipated date of discharge: 01/19/17 - Patient Status Disposition: Home, Self-Care Condition: Good Functional capacity at discharge: independent ambulation Overall status at discharge: patient is progressing back to baseline - Discharge Instructions Instructions: Cellulitis (DC) Follow Up With: Dimple Loredo CNP [Primary Care Provider] - 01/25/17 9:00 am Tanvi Carbone CNP [Advanced Practice Nurse] - 01/26/17 9:40 am Forms: ED Satisfaction Letter Additional Instructions: Wound care daily: remove packing. Shower using antibacterial soap. Repack with 1/4 inch plane because cover with a dry dressing and tape to secure. Follow-up in the office on 12/26/16 at 9:40 AM. Take antibiotics as directed. - Diet and Activity Activity: increase activity as tolerated Diet: low fat, low cholesterol, low salt diet Hospital course: Mr. Barrientos is a 31 year old male patient with history of essential hypertension who came to the ER with complaints of left upper medial thigh/ gluteal fold abscess. CT scan in the ER suggested presence of 2 x 3 cm phlegmon. Surgery was consulted. Initially patient was recommended treatment with intravenous antibiotics. Over the next day, he developed fluctuance in this location. He then underwent incision and drainage. Since then he is feeling better and has been cleared for discharge by surgery. He will follow up with surgery as outpatient for further management. He will be discharged home on Bactrim to complete antibiotic treatment course while we await cultures. So far Wound culture has not grown any bacteria. - Time Spent with Patient Total time spent providing and/or coordinating discharge services: Greater than 30 minutes (35 min) - Constitutional Vitals: Temp Pulse Resp BP Pulse Ox 97.6 F 66 18 124/76 93 01/19/17 10:18 01/19/17 10:18 01/19/17 10:18 01/19/17 10:18 01/19/17 10:18 General appearance: Present: cooperative, A&O X 3, no acute distress, answers questions appropriately - Respiratory Respiratory exam: Present: CTAB. Absent: accessory muscle use, rales, rhonchi, wheezes - Cardiovascular Cardiovascular exam: Present: RRR, +S1, +S2. Absent: diastolic murmur, gallop, rubs, systolic murmur - GI/Abdominal GI/Abdominal exam: Present: normal bowel sounds, soft, no peritoneal signs. Absent: distended, tenderness - Extremities Exam Extremities exam: Present: warm, radial pulses palpable and symmetrical. Absent : calf tenderness, cyanotic, pedal edema - Neurological Exam Neurological exam: Present: CN II-XII intact, oriented X3, no focal deficits. Absent: facial droop, speech deficit - Skin Skin exam: Present: dry, intact Additional comments: Left gluteal fold incision site covered with bandage with some blood seeping through. - VTE Reasons for not Prescribing Prophylaxis: Treatment not Indicated - Low risk for VTE
[2017-01-19] MEDS: Vancomycin 2,000 MG in D5% in Water 500 ML IVPB SCH (13:05)
[2017-01-19] MEDS ORDERED: Aminoglycoside Consult 1 EACH MC ONE (16:45)
== END 2017-01-19 16:46 | disposition home or self-care (01) ==
LOC: 3ANU 12:48 → EMEROO 12:48 → 3ANU 16:25
PROVIDERS: ADMIT Hospitalist; ATTEND Internal Medicine